=== PATIENT | male | born 2000 | race African-American/Black ===

== ENCOUNTER 2024-11-19 13:02 | Emergency (ER) | payer OTHER ==
[~2024-11-19] VITALS: Ht 175.3 cm; Wt 72.7 kg
[2024-11-19 13:13] VITALS: BP 123/73; PULSE 88; RESP 16; TEMP 97.9; O2SAT 99
[2024-11-19 13:32] LABS: PLATELET COUNT (AUTO) 309 K/uL (150-450); RED BLOOD CELL COUNT(AUTO) 5.52 MIL/uL (4.50-5.90); RED CELL DISTRIBUTION WIDTH 14.1 % (11.5-14.5); WHITE BLOOD COUNT (AUTO) 5.3 K/uL (4.5-11.0)
[2024-11-19 13:41] LABS: CALCIUM, TOTAL 8.9 mg/dL (8.8-10.5); CREATININE 0.99 mg/dL (0.60-1.30); GLOMERULAR FILTR. RATE CALC > 60 mL/min (>60); GLUCOSE,RANDOM 115 mg/dL (70-110); SODIUM SERUM 139 mmol/L (136-145); UREA NITROGEN, BLOOD 13 mg/dL (7-18)
[2024-11-19 13:49] LABS: TROPONIN I-HIGH SENSITIVITY 6 ng/L (<76)
== END 2024-11-19 15:36 | disposition home or self-care (01) ==
LOC: EMS 13:02
DX: R07.2 Precordial pain (principal); M79.18 Myalgia, other site
CPT/HCPCS: 71045; 80048; 84484; 85025; 93005; 99285; 36415-L1; 36415-TC